=== PATIENT | female | born 1990 | race Caucasian/White ===

== ENCOUNTER 2022-09-27 19:44 | Emergency (ER) | payer SELFPAY ==
[2022-09-27 20:18] LABS: Bacteria/HPF None Seen HPF (None Seen); Bilirubin Negative (Negative); Blood, Urine 1+ (Negative); CAUTI Indications for Culture Dysuria,urgency,freq; Clarity Clear (Clear); Glucose, Urine (Dipstick) Normal (Negative); Ketone, Urine Negative (Negative); Leukocyte Negative Leu/uL (Negative); Nitrite Negative (Negative); Protein, Urine (Dipstick) Negative (Neg-Trace); RBC/HPF 0-3 HPF (0-3); Specific Gravity, Urine 1.008 (1.002-1.036); Squamous Epithelial 0-3 HPF (0-3); Urobilinogen Normal mg/dL (Less than 2); WBC/HPF 0-3 HPF (0-3); pH, Urine 6.5 (5.0-9.0)
[2022-09-27 20:19] LABS: Urine Culture Reflex No No
[2022-09-27] MEDS ORDERED: cefTRIAXone (ROCEPHIN) 500 MG VIAL ONE (20:51)
[2022-09-27] MEDS ORDERED: Azithromycin 250 MG TAB ONE (20:51)
[2022-09-27] MEDS ORDERED: Lidocaine 2% PF 5 ML VIAL ONE (20:55)
[2022-09-28 00:03] LABS: Chlamydia by PCR, Vaginal Swab Not Detected (NotDetected); GC by PCR, Vaginal Swab Not Detected (NotDetected)
== END 2022-09-27 21:13 | disposition home or self-care (01) ==
LOC: ERS 19:44
DX: N89.8 Other specified noninflammatory disorders of vagina (principal); R30.0 Dysuria
CPT/HCPCS: 81001; 87086; 87480; 87491; 87510; 87591; 87660; 96372; 99283; J0696; J2001